=== PATIENT | male | born 1950 | race Caucasian/White ===

== ENCOUNTER 2024-07-09 08:50 | Inpatient (IN) | payer MEDICARE ==
[2024-07-09 09:20] LABS: #Basophils 0.04 10x3/uL (0.0-0.2); %Basophils 0.6 % (0.0-1.0); %Eosinophils 2.8 % (0.0-10.0); %Lymphocytes 25.4 % (21.0-51.0); %Monocytes 9.9 % (0.0-10.0); %Neutrophils 60.2 % (42.0-75.0); Hematocrit 47.7 % (42.0-52.0); Hemoglobin 15.6 g/dL (14.0-18.0); Mean Corpuscular HGB CONC 32.7 g/dL (32.0-36.0); Mean Corpuscular Hemoglobin 27.8 pg (27.0-31.0); Mean Corpuscular Volume 84.9 fL (78.0-98.0); Mean Platelet Volume 9.9 fL (7.4-10.4); Platelet Count 199 10x3/uL (130-400); RBC Distribution Width 14.5 % (11.5-14.5); Red Blood Cell (RBC) Count 5.62 mill/uL (4.70-6.10)
[2024-07-09 09:39] LABS: Magnesium 2.1 mg/dL (1.6-2.6)
[2024-07-09 09:44] LABS: Troponin I Less than 0.010 ng/mL (< 0.028)
[2024-07-09] MEDS ORDERED: EPINEPHrine 1 MG/10 ML Abboject SYRINGE ONE ×2 (09:46→09:47)
[2024-07-09 09:56] LABS: ALT (SGPT) 11 U/L (8-55); AST (SGOT) 13 U/L (5-34); Albumin 3.3 g/dL (3.4-4.8); Alkaline Phosphatase 65 U/L (40-110); Anion Gap 16 mmol/L (10-20); BUN (Urea Nitrogen) 96 mg/dL (8.4-25.7); Calc. Creatinine Clearance 0 mL/min (70-130); Calcium 9.2 mg/dL (7.8-10.44); Carbon Dioxide 17 mmol/L (23-31); Chloride 101 mmol/L (98-107); Estimated GFR 17; Globulin 4.1 g/dL (2.4-3.5); Glucose 158 mg/dL (83-110); Magnesium 2.1 mg/dL (1.6-2.6); Potassium 6.8 mmol/L (3.5-5.1); Protein, Total 7.4 g/dL (5.8-8.1); Sodium 127 mmol/L (136-145)
[2024-07-09] MEDS ORDERED: Albuterol 2.5 MG (0.5 mL) NEB ONE (10:03)
[2024-07-09] MEDS ORDERED: Albuterol 2.5 MG (3 mL) NEB ONE (10:03)
[2024-07-09] MEDS ORDERED: CALCIUM GLUC 1 GM/NS 50 ML IV Bag ONE (10:05)
[2024-07-09] MEDS ORDERED: Insulin Regular, Human 100 UNIT/ML 10 ML VIAL ONE (10:05)
[2024-07-09] MEDS ORDERED: Dextrose 10% in Water 250 ML ONE (10:05)
[2024-07-09] MEDS ORDERED: Furosemide 40 MG (4 mL) VIAL ONE (10:44)
[2024-07-09 10:45] LABS: INR-International Normal Ratio 1.5; Prothrombin Time 18.3 sec (12.0-14.7)
[2024-07-09] MEDS ORDERED: DOPamine 400 MG/D5W 250 ML 250 ML ONE (10:46)
[2024-07-09] MEDS ORDERED: Lidocaine 2% 6 ML (Jelly) SYR ONE (10:56)
[2024-07-09] MEDS ORDERED: Ipratropium/Albuterol 3 ML NEB NEB PRN (12:17)
[2024-07-09 12:21] LABS: Anion Gap 16 mmol/L (10-20); BUN (Urea Nitrogen) 83 mg/dL (8.4-25.7); Calc. Creatinine Clearance 0 mL/min (70-130); Carbon Dioxide 14 mmol/L (23-31); Chloride 98 mmol/L (98-107); Estimated GFR 20; Glucose 395 mg/dL (83-110); Potassium 5.6 mmol/L (3.5-5.1); Sodium 122 mmol/L (136-145)
[2024-07-09] MEDS ORDERED: DOPamine 400 MG/D5W 250 ML 250 ML IVPB SCH (12:30)
[2024-07-09] MEDS ORDERED: EPINEPHrine 4 MG in Dextrose 5% in Water 250 ML IV SCH (12:30)
[2024-07-09 12:38] LABS: Bilirubin Negative (Negative); Blood, Urine 2+ (Negative); Clarity Turbid (Clear); Glucose, Urine (Dipstick) Normal (Negative); Ketone, Urine Negative (Negative); Leukocyte 500 Leu/uL (Negative); Nitrite Negative (Negative); Protein, Urine (Dipstick) 20 mg/dL (Neg-Trace); Specific Gravity, Urine 1.008 (1.002-1.036); Squamous Epithelial 0-3 HPF (0-3); Urobilinogen Normal mg/dL (Less than 2); WBC/HPF Greater than 50 HPF (0-3)
[2024-07-09 12:41] LABS: Bacteria/HPF 1+ HPF (None Seen)
[2024-07-09 13:40] LABS: Lactic Acid 2.29 mmol/L (0.5-2.2)
[2024-07-09] MEDS: Cefepime 2 GM in Sodium Chloride 0.9% 100 ML IVPB SCH (17:53)
[2024-07-09] MEDS: Albumin 25% 25 GM (100 mL) BOT IVPB SCH (17:54)
[2024-07-09] MEDS: Sodium Bicarbonate 150 MEQ in Dextrose 5% in Water 1,000 ML IV SCH (18:22)
[2024-07-09 19:49] LABS: Anion Gap 18 mmol/L (10-20); BUN (Urea Nitrogen) 92 mg/dL (8.4-25.7); Calc. Creatinine Clearance 50 mL/min (70-130); Calcium 8.8 mg/dL (7.8-10.44); Carbon Dioxide 16 mmol/L (23-31); Chloride 101 mmol/L (98-107); Estimated GFR 19; Glucose 113 mg/dL (83-110); Potassium 6.6 mmol/L (3.5-5.1); Sodium 128 mmol/L (136-145)
[2024-07-09] MEDS: LOKELMA 10 GM PACKET PO SCH (20:38)
[2024-07-09] MEDS: Insulin Regular, Human 100 UNIT/ML 10 ML VIAL IVP SCH (20:38)
[2024-07-09] MEDS: Dextrose 50% Abboject 50 ML SYRINGE SLOW IVP PRN (20:39)
[2024-07-09] MEDS: Sodium Bicarb 50 MEQ/50 ML Abboject 8.4% SYRINGE IVP SCH (20:39)
[2024-07-09] MEDS: Apixaban 5 MG TAB PO SCH (20:50)
[2024-07-10 00:15] LABS: Anion Gap 14 mmol/L (10-20); BUN (Urea Nitrogen) 93 mg/dL (8.4-25.7); Calc. Creatinine Clearance 54 mL/min (70-130); Calcium 8.7 mg/dL (7.8-10.44); Carbon Dioxide 20 mmol/L (23-31); Chloride 100 mmol/L (98-107); Estimated GFR 20; Glucose 128 mg/dL (83-110); Potassium 5.7 mmol/L (3.5-5.1); Sodium 128 mmol/L (136-145)
[2024-07-10] MEDS: NOREPINEPHRINE 8 MG/250 ML-D5W 250 ML IVPB SCH (00:47)
[2024-07-10 04:04] LABS: #Basophils Less than 0.03 10x3/uL (0.0-0.2); %Basophils 0.3 % (0.0-1.0); %Eosinophils 3.1 % (0.0-10.0); %Lymphocytes 24.9 % (21.0-51.0); %Monocytes 12.7 % (0.0-10.0); %Neutrophils 57.9 % (42.0-75.0); Hematocrit 40.8 % (42.0-52.0); Hemoglobin 13.5 g/dL (14.0-18.0); Mean Corpuscular HGB CONC 33.1 g/dL (32.0-36.0); Mean Corpuscular Hemoglobin 27.8 pg (27.0-31.0); Mean Platelet Volume 10.8 fL (7.4-10.4); Platelet Count 161 10x3/uL (130-400); RBC Distribution Width 14.6 % (11.5-14.5); Red Blood Cell (RBC) Count 4.86 mill/uL (4.70-6.10)
[2024-07-10 04:20] LABS: Anion Gap 15 mmol/L (10-20); BUN (Urea Nitrogen) 94 mg/dL (8.4-25.7); Calc. Creatinine Clearance 57 mL/min (70-130); Calcium 8.8 mg/dL (7.8-10.44); Carbon Dioxide 19 mmol/L (23-31); Chloride 101 mmol/L (98-107); Estimated GFR 22; Glucose 155 mg/dL (83-110); Potassium 5.6 mmol/L (3.5-5.1); Sodium 129 mmol/L (136-145)
[2024-07-10] MEDS: Cefepime 2 GM in Sodium Chloride 0.9% 100 ML IVPB SCH (07:41)
[2024-07-10] MEDS: Pantoprazole DR 40 MG TAB PO SCH (07:42)
[2024-07-10] MEDS: Sodium Polystyrene Sulfonate 15 GM (60 mL) BOT PO SCH (11:04)
[2024-07-10 18:16] LABS: Potassium 5.1 mmol/L (3.5-5.1)
[2024-07-11 03:34] LABS: Anion Gap 11 mmol/L (10-20); BUN (Urea Nitrogen) 62 mg/dL (8.4-25.7); Calc. Creatinine Clearance 86 mL/min (70-130); Calcium 8.7 mg/dL (7.8-10.44); Carbon Dioxide 27 mmol/L (23-31); Chloride 100 mmol/L (98-107); Estimated GFR 36; Glucose 171 mg/dL (83-110); Potassium 5.3 mmol/L (3.5-5.1); Sodium 133 mmol/L (136-145)
[2024-07-11 06:33] VITALS: BMI 52.7
[2024-07-11] MEDS: Dextrose 50% Abboject 50 ML SYRINGE SLOW IVP SCH (09:05)
[2024-07-11] MEDS: Insulin Regular, Human 100 UNIT/ML 10 ML VIAL IVP SCH (09:05)
[2024-07-11] MEDS: LOKELMA 10 GM PACKET PO SCH (09:06)
[2024-07-11] MEDS ORDERED: Polyethylene Glycol 3350 17 GM Packet PO PRN (10:02)
[2024-07-11 16:18] LABS: Potassium 5.3 mmol/L (3.5-5.1)
[2024-07-11] MEDS: Amoxicillin/Potassium Clav 500 MG TAB PO SCH (20:27)
[2024-07-12 05:05] LABS: #Basophils 0.05 10x3/uL (0.0-0.2); %Eosinophils 5.2 % (0.0-10.0); %Lymphocytes 29.8 % (21.0-51.0); %Monocytes 13.6 % (0.0-10.0); %Neutrophils 49.2 % (42.0-75.0); Hematocrit 41.2 % (42.0-52.0); Hemoglobin 13.2 g/dL (14.0-18.0); Mean Corpuscular Hemoglobin 27.9 pg (27.0-31.0); Mean Corpuscular Volume 87.1 fL (78.0-98.0); Mean Platelet Volume 10.1 fL (7.4-10.4); Platelet Count 172 10x3/uL (130-400); RBC Distribution Width 14.4 % (11.5-14.5); Red Blood Cell (RBC) Count 4.73 mill/uL (4.70-6.10)
[2024-07-12 05:43] LABS: Hemoglobin A1c 7.3 % (4.0-6.0)
[2024-07-12 05:46] LABS: Anion Gap 13 mmol/L (10-20); BUN (Urea Nitrogen) 39 mg/dL (8.4-25.7); Calc. Creatinine Clearance 118 mL/min (70-130); Carbon Dioxide 25 mmol/L (23-31); Chloride 102 mmol/L (98-107); Estimated GFR 53; Glucose 144 mg/dL (83-110); Potassium 5.1 mmol/L (3.5-5.1); Sodium 135 mmol/L (136-145)
[2024-07-12] MEDS: Sodium Polystyrene Sulfonate 15 GM (60 mL) BOT PO SCH (10:47)
[2024-07-12] MEDS: Acetaminophen 325 MG TAB PO PRN (17:08)
[2024-07-13 04:37] LABS: #Basophils 0.05 10x3/uL (0.0-0.2); %Basophils 0.9 % (0.0-1.0); %Eosinophils 4.6 % (0.0-10.0); %Lymphocytes 34.3 % (21.0-51.0); %Monocytes 11.9 % (0.0-10.0); %Neutrophils 47.2 % (42.0-75.0); Hematocrit 40.8 % (42.0-52.0); Hemoglobin 12.9 g/dL (14.0-18.0); Mean Corpuscular HGB CONC 31.6 g/dL (32.0-36.0); Mean Corpuscular Hemoglobin 27.7 pg (27.0-31.0); Mean Corpuscular Volume 87.6 fL (78.0-98.0); Mean Platelet Volume 10.4 fL (7.4-10.4); Platelet Count 171 10x3/uL (130-400); RBC Distribution Width 14.4 % (11.5-14.5); Red Blood Cell (RBC) Count 4.66 mill/uL (4.70-6.10)
[2024-07-13 04:52] LABS: Anion Gap 14 mmol/L (10-20); BUN (Urea Nitrogen) 30 mg/dL (8.4-25.7); Calc. Creatinine Clearance 116 mL/min (70-130); Carbon Dioxide 27 mmol/L (23-31); Chloride 101 mmol/L (98-107); Estimated GFR 52; Glucose 129 mg/dL (83-110); Potassium 4.7 mmol/L (3.5-5.1); Sodium 137 mmol/L (136-145)
[2024-07-13] MEDS ORDERED: Senokot 8.6 MG TAB PO PRN (07:55)
[2024-07-13] MEDS ORDERED: Polyethylene Glycol 3350 17 GM Packet PO PRN (07:55)
[2024-07-13] MEDS: Finasteride 5 MG TAB PO SCH (08:59)
[2024-07-13] MEDS: Albumin 25% 25 GM (100 mL) BOT IVPB SCH (11:53)
[2024-07-13] MEDS: Melatonin 3 MG TAB PO SCH (20:26)
[2024-07-13] MEDS: Tamsulosin HCl 0.4 MG CAP PO SCH (20:26)
[2024-07-14 05:21] LABS: #Basophils 0.03 10x3/uL (0.0-0.2); %Basophils 0.6 % (0.0-1.0); %Eosinophils 4.5 % (0.0-10.0); %Lymphocytes 28.9 % (21.0-51.0); %Monocytes 10.9 % (0.0-10.0); %Neutrophils 54.2 % (42.0-75.0); Hematocrit 38.4 % (42.0-52.0); Hemoglobin 12.3 g/dL (14.0-18.0); Mean Corpuscular Volume 87.3 fL (78.0-98.0); Platelet Count 163 10x3/uL (130-400); RBC Distribution Width 13.9 % (11.5-14.5)
[2024-07-14 06:16] LABS: Anion Gap 11 mmol/L (10-20); BUN (Urea Nitrogen) 23 mg/dL (8.4-25.7); Calc. Creatinine Clearance 143 mL/min (70-130); Calcium 9.2 mg/dL (7.8-10.44); Carbon Dioxide 27 mmol/L (23-31); Chloride 102 mmol/L (98-107); Estimated GFR 66; Glucose 111 mg/dL (83-110); Potassium 4.5 mmol/L (3.5-5.1); Sodium 135 mmol/L (136-145)
[2024-07-14] MEDS: Acetaminophen 500 MG TAB PO SCH (12:24)
[2024-07-14 15:09] VITALS: BP 143/88; TEMP 97.8
== END 2024-07-14 16:53 | DRG 315 ==
LOC: ERS 08:50 → ERHOLD 11:48 → CCU 14:24 → 2NO 07-11 16:51
PROVIDERS: ADMIT Family Medicine; ATTEND Internal Medicine
DX: I95.9 Hypotension, unspecified (principal); E87.1 Hypo-osmolality and hyponatremia; I13.0 Hypertensive heart and chronic kidney disease with heart failure and stage 1 through stage 4 chronic kidney disease, or unspecified chronic kidney disease; I42.9 Cardiomyopathy, unspecified; I50.42 Chronic combined systolic (congestive) and diastolic (congestive) heart failure; N17.9 Acute kidney failure, unspecified; Z68.43 Body mass index [BMI] 50.0-59.9, adult; E87.5 Hyperkalemia; R00.1 Bradycardia, unspecified; I48.91 Unspecified atrial fibrillation; K21.9 Gastro-esophageal reflux disease without esophagitis; Z95.810 Presence of automatic (implantable) cardiac defibrillator; Z90.49 Acquired absence of other specified parts of digestive tract; Z79.01 Long term (current) use of anticoagulants; Z79.899 Other long term (current) drug therapy; Z79.1 Long term (current) use of non-steroidal anti-inflammatories (NSAID); E66.01 Morbid (severe) obesity due to excess calories; N18.30 Chronic kidney disease, stage 3 unspecified; E11.22 Type 2 diabetes mellitus with diabetic chronic kidney disease; R33.8 Other retention of urine; N40.0 Benign prostatic hyperplasia without lower urinary tract symptoms
CPT/HCPCS: 36415; 36416; 51702; 71045; 76770; 80048; 80053; 81001; 83036; 83605; 83735; 83880; 84443; 84484; 85025; 85610; 85730; 87040; 87077; 87086; 87186; 93005; 93306; 94644; 94760; 96365; 96366; 96368; 96374; 96375; J0171; J0613; J0692; J1265; J1815; J1940; J7070; J7611; J7999; P9047